=== PATIENT | male | born 1985 | race Caucasian/White ===

== ENCOUNTER 2025-01-02 09:05 | Outpatient (REF) | payer MEDICAID, SELFPAY ==
[2025-01-02 14:39] LABS: MANUAL DIFF FLAG NO
[2025-01-02 14:54] LABS: Hematocrit 44.2 % (42.0-52.0); Hemoglobin 15.6 g/dl (14.0-18.0); Imm Gran Abs Auto 0.06 X10*3/uL (0.00-0.03); Imm Gran Pct Auto 0.6 % (0.0-0.4); Lymphocytes Absolute Auto 1.7 X10*3/uL (1.2-4.9); Mean Corpuscular HGB Conc 35.3 g/dl (31.0-36.0); Mean Corpuscular Hemoglobin 29.8 pg (27.0-33.0); Mean Corpuscular Volume 84.4 fL (80.0-98.0); NRBC Abs Auto 0.000 X10*3/uL (0.0-0.012); NRBC Pct Auto 0.0 /100WBC (0.0-0.2); Platelet Count 310 X10*3/uL (160-400); Red Blood Count 5.24 X10*6/uL (4.60-5.80); White Blood Count 9.9 X10*3/uL (4.8-10.8)
[2025-01-02 15:12] LABS: Alanine Aminotransferase 27 U/L (0-40); Albumin Level 4.5 g/dL (3.5-5.0); Alkaline Phosphatase 121 U/L (39-117); Anion Gap 11 (12-20); Aspartate Amino Transferase 27 U/L (5-37); Blood Urea Nitrogen 14 mg/dL (9-16); Calcium 9.5 mg/dL (8.4-10.2); Carbon Dioxide 31 mmol/L (22-29); Chloride 97 mmol/L (96-108); Cholesterol 211 mg/dL (<200); Estimated Glomerular Filt Rate > 60; HDL Cholesterol 41 mg/dL (>40); Potassium 4.4 mmol/L (3.3-5.1); Sodium 135 mmol/L (135-145); Total Protein 7.0 g/dL (6.5-8.0); Triglycerides 110 mg/dL (<150)
[2025-01-03 13:10] LABS: HIV Num 1 0.06 S/CO (0.00-0.99); ~HepC Num1 0.12 S/CO (0.00-0.79); ~Hepatitis C Antibody Nonreactive (Nonreactive)
== END 2025-01-02 09:06 | disposition home or self-care (01) ==
LOC: HO.CHCLDS 09:05
DX: Z76.89 Persons encountering health services in other specified circumstances (principal); Z11.4 Encounter for screening for human immunodeficiency virus [HIV]; Z11.59 Encounter for screening for other viral diseases
CPT/HCPCS: 36415; 80053; 80061; 82043; 82570; 83036; 84443; 85025; 86803; 87389

== ENCOUNTER 2025-01-05 13:56 | Outpatient (REF) | payer MEDICAID, SELFPAY ==
--- OUTSIDE RECORDS SUMMARY | 2025-01-05 13:30 | XMS_ITS | Encounter Summary ---
Author Organization [employer] Address [address] [place] [address] 7 [place] [address] Care Team Providers Care Content Analyst Name Role Phone Mellisa Hernandez CNP Primary Care Provider [phone] Reason for Referral * Imaging (Routine) - Authorized Specialty Diagnoses / Procedures Referred By Yung branham Referred To Contact Radiology Diagnoses Transaminitis Procedures US Abdomen Complete Mellisa Hernandez CNP [address] [place] [address] Phone: tel: fax: [address] Phone: tel: fax: Referral ID Status Reason Start Date Expiration Date V isits Requested Visits Authorized [id number] Authorized 01/05/2025 01/05/2026 1 1 Reason for Visit * Reason Comments Follow-up Mental health Encounter Details Date Type Department Care Team (Latest Contact Info) Description 01/05/2025 1:30 PM EDT Office Visit [facility] [address] [place], [place] [id number] Mellisa Hernandez CNP [address] [place], [place] [id number] Hyperlipidemia, unspecified hyperlipidemia type (Primary Dx); Anxiety and depression; Transaminitis; Type 1 diabetes mellitus with other specified complication (HCC); Infection of toenail Social History Tobacco Use Types Packs/Day Years Used Date Smoking Tobacco: Never Passive Smoke Exposure: Never Smokeless Tobacco: Never Alcohol Use Standard Drinks/Week Comments Not Asked 0 (1 standard drink = 0.6 oz pur e alcohol) rare Depression Answer Date Recorded Patient Health Questionnaire-9 Score 22 11/23/2024 Patient Health Questionnaire-9 Score 22 11/23/2024 Last PHQ-9: Questionnaire Data Not on file 0 11/23/2024 Housing Stability Answer Date Recorded What is your housing situation today? I have sunday carroll 11/23/[address] you li ve. Do you have problems with any of the following? None of the above 11/23/2024 Food Insecurity Answer Date Recorded Within the past 12 months, y ou worried that your food would run out before you got money to buy more: Never True 11/23/2024 Within the past 12 months,th e food you bought just didn't last and you didn't have enough money to get more: Never True 12/2024 Transportation Answer Date Recorded In the past 12 months, has l ack of transportation kept you from medical appts, meetings, work or from getting things needed for daily living? Yes, it has kept me from non-medical meetings, work, or getting things that I need 11/23/2024 Utilities Answer Date Recorded In the past 12 months, has t he electric, gas, oil or water company threatened to shut off services in your home? No 11/23/2024 Depression Answer Date Recorded Patient Health Questionnaire-2 Score 6 11/23/2024 Internet Access Answer Date Recorded Internet Access Q1 No 11/23/2024 Internet Access Q2 I cannot afford it 11/23/2024 Sex and Gender Information Value Date Recorded Sex Assigned at Male 01/13/2022 10:20 AM EDT Legal Sex Male 10:20 AM EDT Gender Identity Choose not to disclose 10:20 AM EDT Sexual Orientation Choose not to disclose 2021 10:20 AM EDT documented as of this encounter Last Filed Vital Signs Vital Sign Reading Time Taken Comments Blood Pressure 134/88 01/05/2025 1:37 PM EDT Pulse 88 01/05/2025 1:37 PM EDT Temperature 36.7 C (98 F) 01/05/2025 1:37 PM EDT Respiratory Rate 12 01/05/2025 1:37 PM EDT Oxygen Saturation 96% 01/05/2025 1:37 PM EDT Inhaled Oxygen Concentration - - Weight 84.4 kg (186 lb) 01/05/2025 1:37 PM EDT Height 177.8 cm (5' 10 ) 01/05/2025 1:37 PM EDT Body Mass Index 26.69 01/05/2025 1:37 PM EDT documented in this encounter Progress Notes * Mellisa Hernandez, CLEAN UP SUPERVISOR - 01/05/2025 1:30 PM EDT Subjective Patient ID: Israel Lundy is a 39 y.o. adult who presents for f/u. HPI Interim History -Last PCP visit 11/23/2024 - we addressed the following: - Reports anxiety as main concern, depression present but manageable, currently experiencing panic attacks requiring withdrawal from situations. On waitlist for grief support through [employer] recently lost his partner, unable to access online support due to cost. No suicidal ideation, states responsibility prevents self-harm. We started sertraline and prn hydroxyzine. Pt was referred to for psychotherapy and grief support. Today - Ongoing Toe infection with oozing, worsened over the past week - Completed previous oral antibiotic course (doxy) for toe infection - Denies fever and chills or any systemic signs of infection - Anxiety symptoms, taking sertraline and hydroxyzine - Sertraline helps with sleep, no drowsiness, started with half pill for 10 days, now taking full pill - Hydroxyzine taken at night only, not during the day - Reports difficulty assessing improvement in anxiety symptoms - Sleep improved, now getting about 5 hours per night, previously only 2 hours - No side effects from anxiety medications - Reports he established care with , satisfied with provider has had 3 visits thus far - Reports ongoing hyperglycemia, 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, next f/u in February - Hemoglobin A1c recently decreased, surprised due to frequent high readings -reports he is going to start seeing linoleum tile floor layer Recent labs Lab Results Component Value Date WBC 9.9 01/02/2025 HGB 15.6 01/02/2025 HCT 44.2 01/02/2025 MCV 84.4 01/02/2025 PLT 310 01/02/2025 Lab Results Component Value Date GLUCOSE 281 (H) 01/02/2025 NA 135 01/02/2025 K 4.4 01/02/2025 CO2 31 (H) 01/02/2025 CL 97 01/02/2025 BUN 14 01/02/2025 CREATININE 0.78 01/02/2025 Lab Results Component Value Date CHOL 211 (H) 01/02/2025 Lab Results Component Value Date HDL 41 01/02/2025 Lab Results Component Value Date TRIG 110 01/02/2025 Lab Results Component Value Date HGBA1C 7.3 (H) 01/02/2025 Review of Systems Objective Vitals: 01/05/25 1337 BP: 134/88 Pulse: 88 Resp: 12 Temp: 98 ??F (36.7 ??C) SpO2: 96% Physical Exam Constitutional: Appearance: Normal appearance. Israel is normal weight. Cardiovascular: Rate and Rhythm: Normal rate and regular rhythm. Pulses: Normal pulses. Heart sounds: Normal heart sounds. No murmur heard. No friction rub. No gallop. Pulmonary: Effort: Pulmonary effort is normal. No respiratory distress. Breath sounds: Normal breath sounds. No wheezing or rales. Feet: Left foot: Skin integrity: Erythema and warmth present. Comments: +some bleeding noted on R large toe no purulent discharge Neurological: General: No focal deficit present. Mental Status: Israel is alert and oriented to person, place, and time. Psychiatric: Mood and Affect: Mood normal. Behavior: Behavior normal. Thought Content: Thought content normal. Judgment: Judgment normal. Problem List Items Addressed This Visit Type 1 diabetes mellitus (HCC) Relevant Medications Insulin Lispro 100 UNIT/ML solution atorvastatin (Lipitor) 10 MG tablet Multiple Vitamin (multivitamin) tablet Other Relevant Orders POCT glucose manually resulted (Completed) Lab Results Component Value Date HGBA1C 7.3 (H) 01/02/2025 Pt to continue endocrinology f/u Pt to f/u with linoleum tile floor layer Pt referred to podiatry at [facility] Pt referred for eye exam at [facility] vision center at [facility] Today we added statin therapy Continue with lifestyle modifications Other Visit Diagnoses Hyperlipidemia, unspecified hyperlipidemia type - Primary Relevant Medications Insulin Lispro 100 UNIT/ML solution atorvastatin (Lipitor) 10 MG tablet Multiple Vitamin (multivitamin) tablet Other Relevant Orders Lipid Panel, Standard LDL levels <190, pt has high asvd risk >20% Due to co morbidities including T1 diabetes and elevated blood pressure will initiate moderate intensity statin per ADA guidelines. Advised lifestyle modifications included low fat diet and daily exercise. Anxiety and depression Relevant Medications amitriptyline (Elavil) 25 MG tablet hydrOXYzine HCl (Atarax) 25 MG tablet No safety concerns today Pt sleep is improving on meds Pt will continue on current medications and OP psychotherapy/grief support Transaminitis Relevant Medications amoxicillin-clavulanate (Augmentin) 875-125 MG tablet Multiple Vitamin (multivitamin) tablet Other Relevant Orders Iron And Total Iron Binding Capacity US Abdomen Complete Plan to do transaminitis workup Will f/u with US and blood work once complete Infection of toenail Relevant Medications amoxicillin-clavulanate (Augmentin) 875-125 MG tablet Podiatry referral authorized, appointment pending Will trial 10d course of augmentin Pt to continue foot care, keep area clean and dry F/u prn for new or worsening conditions documented in this encounter Plan of Treatment Scheduled Orders Name Type Priority Associated Diagnoses Orde r Schedule Iron And Total Iron Binding Capacity Lab Routine Transaminitis Expected: 01/05/2025, Expires: 01/05/2026 US Abdomen Complete Imaging Routine Transaminitis Expected: 01/05/2025, Expires: 01/05/2026 Lipid Panel, Standard Lab Routine Hyperlipidemia, unspecified hyperlipidemia type Expected: 01/05/2025 (Approximate), Expires: 02/13/2025 documented as of this encounter Procedures Procedure Name Priority Date/Time Associated Diagnosis Comments POCT GLUCOSE Routine 01/05/2025 2:01 PM EDT Type 1 diabetes mellitus with other specified complication (HCC) documented in this encounter Results * POCT glucose manually resulted (01/05/2025 2:01 PM EDT) Glucose Blood, POC 95 60 - 200 mg/dL QC Media Lot # Comment:[id number] Lot# Expiration Date Comment:04/23/2025 Blood Capillary blood specimen / Unknown 01/05/2025 2:01 PM EDT us Mellisa Hernandez CNP POINT OF CARE TEST ENTER/ EDIT ORDERABLES Final Result documented in this encounter Visit Diagnoses Diagnosis Hyperlipidemia, unspecified hyperlipidemia type- Primary Anxiety and depression Transaminitis Nonspecific elevation of levels of transaminase or lactic acid dehydrogenase (LDH) Type 1 diabetes mellitus with other specified complication (HCC) Infection of toenail documented in this encounter Additional Health Concerns Assessment Noted Time PHQ-9 Depression Total Score: 22 025 3:11 PM EDT documented as of this encounter Care Teams Content Analyst Relationship Specialty Start Date End Date Mellisa Hernandez CNP PCP - General Family Medicine 11/23/24 documented as of this encounter
--- OUTSIDE RECORDS SUMMARY | 2025-01-05 17:49 | XMS_ITS | Encounter Summary ---
Author Organization [employer] Address [address] [facility] [address] [place] [address] Care Team Providers Care Occ Ther Name Role Phone Mellisa Hernandez LUIGI Primary Care Provider [phone] Encounter Details Date Type Department Care Team (Latest Contact Info) Description 01/05/2025 Travel Social History Tobacco Use Types Packs/Day Years [...] AM EDT documented as of this encounter Plan of Treatment Not on file documented as of this encounter Visit Diagnoses Not on filedocumented in this encounter Additional Health Concerns Assessment Noted Time PHQ-9 Depression Total Score: 22 025 3:11 PM EDT documented as of this encounter Care Teams Occ Ther Relationship Specialty Start Date End Date Mellisa Hernandez CNP PCP - General Family Medicine 11/23/24 documented as of this encounter
--- OUTSIDE RECORDS SUMMARY | 2025-01-05 17:49 | XMS_ITS | Encounter Summary ---
Author Organization [employer] Address [address] [facility] [address] [place] [address] Care Team Providers Care Field Service Manager Name Role Phone Mellisa Hernandez CNP Primary Care Provider [phone] Reason for Visit * Reason Comments Med Refill Encounter Details Date Type Department Care Team ([facility] st Contact Info) Description 12/24/2024 Refill [facility] PEDS [address] [place] [address] Mellisa Hernandez CNP [address] [place] [address] Anxiety and depression Social History Tobacco Use Types Packs/Day Years [...] AM EDT documented as of this encounter Miscellaneous Notes * Telephone Encounter - Trudy Charles LPN - 12/26/2024 1:20 PM EDT Last seen 11/23/24. documented in this encounter Plan of Treatment Not on file documented as of this encounter Visit Diagnoses Diagnosis Anxiety and depression documented in this encounter Additional Health Concerns Assessment Noted Time PHQ-9 Depression Total Score: 22 025 3:11 PM EDT documented as of this encounter Care Teams Field Service Manager Relationship Specialty Start Date End Date Mellisa Hernandez CNP PCP - General Family Medicine 11/23/24 documented as of this encounter
--- OUTSIDE RECORDS SUMMARY | 2025-01-05 17:49 | XMS_ITS | Clinical Summary ---
Author Organization [address] [place] [address] Address [address] [place] [address] Phone Care Team Providers Care Nanny/Household Manager Name Role Phone Unavailable Primary Care Provider Unavailabl e Social History Tobacco Use Types Packs/Day Years Used Date Smoking Tobacco: Never Assessed Sex and Gender Information Value Date Recorded Sex Assigned at Not on file Legal Sex Male 11:32 AM EDT Gender Identity Not on file Sexual Orientation Not on file Plan of Treatment Upcoming Encounters Date Type Department Care Team ([facility] Contact Info) Description 03/02/2025 2:45 PM EST Office Visit Orthopedic Surgery [place] [address] [address] Christophe Nicole, DPM [address] [address] Health Maintenance Due Date Last Done Comments Diabetes: Annual GFR (Glomer ular Filtration Rate) 1985 Diabetes: Annual Foot Exam 05/31/1995 Diabetes: Annual Retina Eye Exam 05/31/1995 DTaP,Tdap,and Td Vaccines (1 - Tdap) 2004 Hepatitis B Vaccines (1 of 3 - 19+ 3-dose series) 2004 Pneumococcal Vaccine: Pediat rics (0 to 5 Years) and At-Risk Patients (6 to 49 Years) (1 of 2 - PCV) 2004 HPV Vaccines (1 - 3-dose SCD M series) 2012 Depression Screening 03/16/2024 COVID-19 Vaccine ( - 2023-2 5 season) 2024 Influenza Vaccine (#1) 2024 Cholesterol Screening (Lipid Panel) 11/29/2024 Diabetes: Annual Urine Albumin-Creatinine Ratio (uACR) 11/29/2024 Diabetes: Blood Sugar Contro l Test (HGBA1C) 11/29/2024 HIV Screening 11/29/2024 Hepatitis C Screening 11/29/2024 Social Influencers of Health Screening 11/29/2024 RSV Immunization Adult Patie nts (1 - 1-dose 75+ series) 2060 HIB Vaccines Aged Out No longer eligi ble based on patient's age to complete this topic Hepatitis A Vaccines Aged Out No long er eligible based on patient's age to complete this topic IPV Vaccines Aged Out No longer eligi ble based on patient's age to complete this topic MMR Vaccines Aged Out No longer eligi ble based on patient's age to complete this topic Meningococcal ACWY Vaccine Aged Out N o longer eligible based on patient's age to complete this topic Meningococcal B Vaccine Aged Out No l onger eligible based on patient's age to complete this topic RSV Immunization Patients Un reid 20 months Aged Out No longer eligible b ased on patient's age to complete this topic Varicella Vaccines Aged Out No longer eligible based on patient's age to complete this topic Insurance [place]ICA[place] - [place]
--- OUTSIDE RECORDS SUMMARY | 2025-01-05 17:49 | XMS_ITS | Clinical Summary ---
Author Organization [employer] Address [address] [place] [address] 7[address] [place] [address] Care Team Providers Care Broadcast Operations Technician Name Role Phone Mellisa Hernandez AVIATION MAINTENANCE TECHNICIAN Primary Care Provider [phone] [phone] Allergies No known active allergies Medications * This document contains information received from the source organization and may not represent a complete record from that organization. loratadine (Claritin) 10 MG tablet Take 1 tablet by mouth Once per day. 025 Active insulin syringe-needle U-100 31G X 5/16 0.5 mL misc See Instructions, # 100 each, Refills 11, Tot. Refills 11, Maintenance, To use up to 4 x daily for back up of insulin delivery as directed in case of pump malfunction or pump supply issue. E10.9, 01/08/23 15:52:00 EDT, Supply, 180, cm, 12/15/22 0:51:0... 023 Active albuterol 108 (90 Base) MCG/ACT inhalerIndication s:Mild intermittent asthma without complication Inhale 2 puffs every 6 (six) hours if needed for wheezing. 18 g 3 025 2025 Active pregabalin (Lyrica) 100 MG capsuleIndication s:Neuropathy Take 1 capsule (100 mg) by mouth 2 times daily. 60 capsule 3 025 2025 Active sertraline (Zoloft) 50 MG tabletIndications :Anxiety and depression Take 1 tablet (50 mg) by mouth Once per day. 30 tablet 2 Active amitriptyline (Elavil) 25 MG tablet Take 25 mg by mouth at bedtime. 025 Active FREESTYLE LITE test strip USE TO TEST BLOOD SUGAR FOUR TIMES DAILY Active Insulin Lispro 100 UNIT/ML solution MAX DAILY DOSE 85 UNITS VIA INSULIN PUMP Active FreeStyle lancets USE TO TEST BLOOD SUGAR FOUR TIMES DAILY Active atorvastatin (Lipitor) 10 MG tabletIndications :Hyperlipidemia, unspecified hyperlipidemia type Take 1 tablet (10 mg) by mouth Once per day. 30 tablet 11 2025 Active amoxicillin-clavu lanate (Augmentin) 875-125 MG tabletIndications :Infection of toenail Take 1 tablet by mouth 2 times daily for 10 days. 20 tablet 2024 Active hydrOXYzine HCl (Atarax) 25 MG tabletIndications :Anxiety and depression Take 1 tablet (25 mg) by mouth if needed in the morning, at noon, and at bedtime for anxiety. 90 tablet 2024 Active Multiple Vitamin (multivitamin) tabletIndications :Hyperlipidemia, unspecified hyperlipidemia type,Type 1 diabetes mellitus with other specified complication (HCC) Take 1 tablet by mouth Once per day. 30 tablet 11 2025 Active Insulin Aspart 100 UNIT/ML solution SEE ATTACHED 2024 Discontinued polyethylene glycol, PEG, 3350 (MiraLax) 17 GM/SCOOP powderIndications :Constipation, unspecified constipation type Take 17 g by mouth Once per day for 14 days. 238 g 2024 sertraline (Zoloft) 50 MG tabletIndications :Anxiety and depression Take 1 tablet (50 mg) by mouth Once per day. Take 1/2 tablet (25mg) for 1 week. If tolerated, may increase to 1 tablet (50mg) daily. 30 tablet 2024 Discontinued(R eorder (will not trigger notification to Pharmacy)) hydrOXYzine HCl (Atarax) 25 MG tabletIndications :Anxiety and depression Take 1 tablet (25 mg) by mouth if needed in the morning, at noon, and at bedtime for anxiety. 90 tablet 025 2024 Discontinued(R eorder (will not trigger notification to Pharmacy)) Active Problems Problem Noted Date Diagnosed Date Severe depression (CMS/HCC) 12/08/2024 Anxiety 12/08/2024 Feeling grief 12/08/2024 Type 1 diabetes mellitus 11/23/2024 Assessment & Plan (11/23/2024 4:00 PM EDT): Lab Results Component Value Date HGBA1C 7.5 (A) 11/23/2024 Continue lifestyle modifications Continue f/u with endocrinology Orders: POCT A1c POCT glucose manually resulted Referral to Podiatry; Future Encounters * This document contains information received from the source organization and may not represent a complete record from that organization. Date Type Department Care Team Description 01/05/2025 1:30 PM EDT Office Visit [facility] [address] [place] [address] Mellisa Hernandez CNP Hyperlipidemia, unspecified hyperlipidemia type (Primary Dx); Anxiety and depression; Transaminitis; Type 1 diabetes mellitus with other specified complication ([facility]); Infection of toenail 01/05/2025 Travel 01/02/2025 Travel 12/30/2024 Telephone [facility] [address] [place] [address] Mellisa Hernandez CNP chart prep 12/24/2024 Refill [facility] [address] [place] [address] Mellisa Hernandez CNP Anxiety and depression 12/18/2024 Refill [facility] [address] [place] [address] Mellisa Hernandez CNP Anxiety and depression 12/08/2024 Travel 11/23/2024 2:00 PM EDT Office Visit [facility] [address] [place] [address] Mellisa Hernandez CNP Encounter to establish care (Primary Dx); Type 1 diabetes mellitus with other specified complication (CMS/HCC); Nausea; Constipation, unspecified constipation type; Mild intermittent asthma without complication; Toe infection; Neuropathy; Anxiety and depression; Elevated blood pressure reading without diagnosis of hypertension 11/23/2024 Travel 11/16/2024 Patient Outreach [facility] [address] [place] [address] Anastacio Prater MD Pre-visit Planning (Pre visit planning LVM ) 11/15/2024 Telephone [facility] [address] [place] [address] Daniel CatherineHARINDER chart prep 10/21/2024 Telephone [facility] [address] [place] [address] Anastacio Prater MD New Patient appt. 10/10/2024 Telephone [facility] [address] [place] [address] Anastacio Prater MD Appointment Request from Last 3 Months Immunizations Immunization Administration Dates Next Due Pneumococcal Conjugate PCV 20 03/10/2024 Social History Tobacco Use Types Packs/Day Years Used Date Smoking Tobacco: Never Passive Smoke Exposure: Never Smokeless Tobacco: Never Tobacco Cessation:Counseling Given: Not Answered Alcohol Use Standard Drinks/Week Comments Not Asked [...] not to disclose 2021 10:20 AM EDT Last Filed Vital Signs Vital Sign Reading [...] Mass Index 26.69 01/05/2025 1:37 PM EDT Plan of Treatment Health Maintenance Due Date Last Done Comments Eye Exam 05/31/1995 Family Planning (PISQ) 2000 HPV Vaccines (1 - 3-dose series) 2000 DTaP/Tdap/Td Vaccines (1 - Tdap) 2004 Hepatitis B Vaccines (1 of 3 - 19+ 3-dose series) 2004 COVID-19 Vaccine ( - 2024-2 6 season) 2024 09/18/2020, 08/28/2020 Influenza Vaccine (#1) 2024 Diabetes: Hemoglobin A1C 04/04/2025 025, 11/23/2024 Depression Monitoring 05/23/2025 11/23/2024 , 11/23/2024 Alcohol/Substance Use Screening 11/23/2025 11/23/2024 SDOH Screening 11/23/2025 11/23/2024 Tobacco Screening 11/23/2025 11/23/2024 Diabetes: Urine Protein Screening 01/02/2026 01/02/2025 Disability Screening 01/02/2026 01/02/2025 Lipid Panel 01/02/2026 01/02/2025 Diabetes: Foot Exam 01/05/2026 01/05/2025, 01/05/2025 Zoster Vaccines (1 of 2) 05/31/2035 RSV Patients and Patients Aged 60 years or older (1 - 1-dose 75+ series) 2060 Pneumococcal Vaccine: Pediatrics (0 to 5 Years) and At-Risk Patients (6 to 49) Years Completed 03/10/2024 HIV Screening Completed 01/02/2025 Hepatitis C Screening Completed 01/02/2025 HIB Vaccines Aged Out No longer eligi [...] patient's age to complete this topic Meningococcal Vaccine Aged Out No stuart yareli eligible based on patient's age to complete this topic RSV under 20 months Aged Out No longe r eligible based on patient's age to complete this topic Rotavirus Vaccines Aged Out No longer eligible based on patient's age to complete this topic Procedures Procedure Name Priority Date/Time Associated Diagnosis Comments POCT GLUCOSE Routine 01/05/2025 2:01 PM EDT Type 1 diabetes mellitus with other specified complication (HCC) ALBUMIN, RANDOM URINE W/CREATININE Routine 01/02/2025 9:15 AM EDT Encounter to establish care TSH W/REFLEX TO FT4 Routine 01/02/2025 9 :09 AM EDT Encounter to establish care CBC WITH AUTO DIFFERENTIAL Routine 01/02/2025 9:09 AM EDT Encounter to establish care COMPREHENSIVE METABOLIC PANEL Routine 01/02/2025 9:09 AM EDT Encounter to establish care HEPATITIS C AB W/REFL TO HCV RNA, QN, PCR Routine 01/02/2025 9:09 AM EDT Encounter to establish care HIV 1/2 ANTIGEN/ANTIBODY, FOURTH GENERATION W/RFL Routine 01/02/2025 9:09 AM EDT Encounter to establish care LIPID PANEL, STANDARD Routine 01/02/2025 9:09 AM EDT Encounter to establish care HEMOGLOBIN A1C Routine 01/02/2025 9:09 AM EDT Encounter to establish care POCT GLUCOSE Routine 11/23/2024 3:02 PM EDT Encounter to establish care Type 1 diabetes mellitus with other specified complication (CMS/HCC) POCT GLYCATED HEMOGLOBIN, TOTAL Routine 11/23/2024 3:01 PM EDT Encounter to establish care Type 1 diabetes mellitus with other specified complication (CMS/HCC) from Last 3 Months Results * POCT glucose manually resulted (01/05/2025 2:01 PM EDT) Only the most recent of2 resultswithin the time period is included. Glucose Blood, POC 95 60 - 200 mg/dL QC Media Lot # Comment:[id number] Lot# Expiration Date Comment:04/23/2025 Blood Capillary blood specimen / Unknown 01/05/2025 2:01 PM EDT [facility] POINT OF CARE TEST ENTER/ EDIT ORDERABLES Final Result * Albumin, Random Urine W/Creatinine (01/02/2025 9:15 AM EDT) Creatinine, Urine 23.24 mg/dL [facility] Microalbumin Urine <5.0 mg/L [facility] Microalbum Creatinine Ratio Ur TNP <30 ug/mg cr [facility] Comment:Unable to calculate albumin/creatinine ratio due to lowmicroalbumin or creatinine result. Urine (Urine, Random) 01/02/2025 9:15 AM EDT 01/02/2025 2:23 PM EDT [facility] AVIATION MAINTENANCE TECHNICIAN LAB URINE ORDERABLES Silvia l Result Performing Organization Address City/[facility]/ZIP Co de Phone Number [facility] [address] [place] [phone] * TSH W/Reflex to FT4 (01/02/2025 9:09 AM EDT) TSH reflex Free T4 3.05 0.32 - 4.0 uIU/mL [facility] Blood Venous blood specimen / Unknown 01/02/2025 9:09 AM EDT 01/02/2025 2:46 PM EDT [facility] AVIATION MAINTENANCE TECHNICIAN LAB BLOOD ORDERABLES Silvia l Result Performing Organization Address [facility] Co de Phone Number [facility] [address] [place] [phone] * (ABNORMAL) CBC auto differential (01/02/2025 9:09 AM EDT) White Blood Count 9.9 4.8 - 10.8 X10*3/uL [facility] Red Blood Count 5.24 4.60 - 5.80 X10*6/uL [facility] Hemoglobin 15.6 14.0 - 18.0 g/dl [facility] Hematocrit 44.2 42.0 - 52.0 % [facility] Mean Corpuscular Volume 84.4 80.0 - 98.0 fL [facility] Mean Corpuscular Hemoglobin 29.8 27.0 - 33.0 pg [facility] Mean Corpuscular HGB Conc 35.3 31.0 - 36.0 g/dl [facility] Red Cell Distribution Width 12.4 11.0 - 16.0 % [facility] Platelet Count 310 160 - 400 X10*3/uL [facility] Mean Platelet Volume 10.3 9.4 - 12.4 fL [facility] Neutrophils Percent Auto 71.1 45 - 73 % [facility] Imm Gran Pct Auto 0.6(H) 0.0 - 0.4 % [facility] Lymphocytes Percent Auto 17.4(L) 20 - 40 % [facility] Monocytes Percent Auto 6.4 2 - 11 % [facility] Eosinophils Percent Auto 3.7 0 - 4 % [facility] Basophils Percent Auto 0.8 0 - 2 % [facility] NRBC Pct Auto 0.0 0.0 - 0.2 /100WBC [facility] Neutrophils Absolute Auto 7.1 2.0 - 8.3 x10*3/uL [facility] Imm Gran Abs Auto 0.06(H) 0.00 - 0.03 X10*3/uL [facility] Lymphocytes Absolute Auto 1.7 1.2 - 4.9 X10*3/uL [facility] Monocytes Absolute Auto 0.6 0.1 - 1.2 X10*3/uL [facility] Eosinophils Absolute Auto 0.4 0.0 - 0.4 X10*3/uL [facility] Basophils Absolute Auto 0.1 0.0 - 0.2 X10*3/uL [facility] NRBC Abs Auto 0.000 0.0 - 0.012 X10*3/uL [facility] Blood Venous blood specimen / Unknown 01/02/2025 9:09 AM EDT 01/02/2025 2:35 PM EDT [facility] LAB BLOOD ORDERABLES Silvia l Result [facility] [address], [place] [phone] * Hepatitis C Antibody with Reflex to HCV, RNA, Quantitative, Real-Time PCR (01/02/2025 9:09 AM EDT) Hepatitis C Antibody Nonreactive Nonreactive [facility] Comment:Antibodies to HCV no t detected; does not exclude early acuteHCV infection. Blood Venous blood specimen / Unknown 01/02/2025 9:09 AM EDT 01/02/2025 2:35 PM EDT [facility] LAB BLOOD ORDERABLES Silvia l Result Performing Organization Address [facility] Co de Phone Number [facility] [address] [place] [address] [phone] * HIV-1/2 Antigen and Antibodies, Fourth Generation, with Reflexes (01/02/2025 9:09 AM EDT) HIV AB/AG Nonreactive Nonreactive [facility] Comment:HIV-1 p24 Ag and/or HIV-1/HIV-2 Ab not detected.A test result that is nonreactive does not exclude thepossibility of exposure to or infection with HIV-1 and/orHIV-2. Nonreactive results in this assay for individualswith prior exposure to HIV-1 and/or HIV-2 may be due toantigen and antibody levels that are below the limit ofdetection of this assay.The [email or web address] HIV Ag/Ab Combo assay result andsupplemental assay results should be interpreted inconjunction with the patient's clinical presentation,history and other laboratory results. If the results areinconsistent with clinical evidence, additional testing issuggested to confirm the result. Blood Venous blood specimen / Unknown 01/02/2025 9:09 AM EDT 01/02/2025 2:35 PM EDT [facility] LAB BLOOD ORDERABLES Silvia l Result Performing Organization Address City/[facility]/ZIP Co de Phone Number [facility] [address] [place] [phone] * (ABNORMAL) Hemoglobin A1c (01/02/2025 9:09 AM EDT) Hemoglobin A1c 7.3(H) <6.0 % [facility] Comment:Hemoglobin A1C Refer ence Range Adults: 4.8 - 6.0 % Non diabetic: < 6.0 % Goal: < 7.0 %Additional Action Suggested: > 8.0 %Note: Hemoglobin A1c results are invalid for patients with abnormal amounts of HbF. Blood transfusions may impact the HbA1c concentration in the patient sample. Estimated Average Glucose 163 mg/dL [facility] Comment:eAG = Estimated ave rage glucose which is %A1C expressed asaverage glucose, using the formula of the A8H-AjynzbpTpgzchi Glucose study (ADAG), Diabetes Care, Vol.31,#8,Oct. 2007 Blood Venous blood specimen / Unknown 01/02/2025 9:09 AM EDT 01/02/2025 2:35 PM EDT Mellisa Hernandez [facility] LAB BLOOD ORDERABLES Silvia alvarez Result [facility] [address] [place] [phone] * (ABNORMAL) Lipid Panel, Standard (01/02/2025 9:09 AM EDT) Triglycerides 110 <150 mg/dL [facility] Comment:Desirable Triglyceri de: less than 150 mg/dLBorderline High Triglyceride 150-199 mg/dLHigh Triglyceride: 200-499 mg/dLVery High Triglyceride: greater than or equal to 5OO mg/dL Cholesterol 211(H) <200 mg/dL [facility] Comment:Desirable Cholestero l: less than 200 mg/dLBorderline High Cholesterol: 200-239 mg/dLHigh Cholesterol: greater than 239 mg/dL LDL Cholesterol Calculated 148(H) <100 mg/dL [facility] Comment:Desirable LDL: less than 100 mg/dLNear Optimal/Above Optimal LDL: 110- 129 mg/dLBorderline High LDL: 130-159 mg/dLHigh LDL: 160-189 mg/dLVery High LDL: greater than or equal to 190 mg/dL HDL Cholesterol 41 >40 mg/dL [facility] Comment:Desirable HDL: great er than 40 mg/dL Note: This HDL assay may give artificially low results in patients with liver disease. Blood Venous blood specimen / Unknown 01/02/2025 9:09 AM EDT 01/02/2025 2:46 PM EDT [facility] BLOOD ORDERABLES Silvia l Result [facility] [address] [place] [phone] * (ABNORMAL) Comprehensive Metabolic Panel (01/02/2025 9:09 AM EDT) Sodium 135 135 - 145 mmol/L [facility] Potassium 4.4 3.3 - 5.1 mmol/L [facility] Chloride 97 96 - 108 mmol/L [facility] Carbon Dioxide 31(H) 22 - 29 mmol/L [facility] Anion Gap 11(L) 12 - 20 [facility] Urea Nitrogen (BUN) 14 9 - 16 mg/dL [facility] Creatinine, Serum 0.78 0.5 - 1.4 mg/dL [facility] Estimated Glomerular Filt Rate >60 [facility] Comment:Chronic Kidney Disea se: Estimated GFR < 60 mL/min/[id number] Kidney Disease: Estimated GFR < 15 mL/min/1.73m2 Glucose 281(H) 60 - 115 mg/dL [facility] Calcium 9.5 8.4 - 10.2 mg/dL [facility] Bilirubin, Total 0.8 0.0 - 1.0 mg/dL [facility] Aspartate Amino Transferase 27 5 - 37 U/L [facility] Alanine Aminotransferase 27 0 - 40 U/L [facility] Total Protein 7.0 6.5 - 8.0 g/dL [facility] Albumin Level 4.5 3.5 - 5.0 g/dL [facility] Alkaline Phosphatase 121(H) 39 - 117 U/L [facility] Blood Venous blood specimen / Unknown 01/02/2025 9:09 AM EDT 01/02/2025 2:46 PM EDT [facility] LAB BLOOD ORDERABLES Silvia l Result [facility] [address] [place] [phone] * (ABNORMAL) POCT A1c (11/23/2024 3:01 PM EDT) Hemoglobin A1C 7.5(A) 4.0 - 5.7 % QC Media Lot # Comment:[id number] Lot# Expiration Date Comment:06/20/2026 Blood 11/23/2024 3:01 PM EDT Mellisa Hernandez CNP POINT OF CARE TEST ENTER/ EDIT ORDERABLES Final Result from Last 3 Months Insurance [id number] Care Teams Broadcast Operations Technician Relationship Specialty Start Date End Date Mellisa Hernandez CNP PCP - General Family Medicine 11/23/24
--- OUTSIDE RECORDS SUMMARY | 2025-01-05 17:49 | XMS_ITS | Encounter Summary ---
Author Organization [employer] Address [address] [facility] [address] [place] [address] Care Team Providers Care Machine Assistant Name Role Phone Mellisa Hernandez LUIGI Primary Care Provider +1 [phone] Encounter Details Date Type Department Care Team (Latest Contact Info) Description 01/02/2025 Travel Social History Tobacco Use Types Packs/Day [...] documented as of this encounter Care Teams Machine Assistant Relationship Specialty Start Date End Date Mellisa Hernandez CNP PCP - General Family Medicine 11/23/24 documented as of this encounter
[2025-01-05 18:18] LABS: Iron 83 mcg/dL (45-160); Percent Iron Saturation 32 % (15-50); Total Iron Binding Capacity 263 mcg/dL (228-428); Unsaturated Iron Binding 180 ug/dL
== END 2025-01-05 13:57 | disposition home or self-care (01) ==
LOC: HO.CHCLDS 13:56
DX: R74.01 Elevation of levels of liver transaminase levels (principal)
CPT/HCPCS: 36415; 83540

== ENCOUNTER 2025-02-02 15:52 | Outpatient (REF) | payer MEDICAID, SELFPAY ==
--- NOTE | 2025-02-02 | PFT_ITS ---
Flows: FEV1: 83 % of predicted at 3.52 L FVC: 90 % of predicted at 4.74 L FEV1/FVC: 74 % Bronchodilator response: Present in small to medium airways only Volumes: Total lung capacity: 85 % of predicted at 6.10 L Residual volume: 96 % of predicted at 1.55 L Slow vital capacity: 82 % of predicted at 4.56 L Expiratory reserve volume: 39 % of predicted at 0.63 L Diffusion capacity: Mildly decreased, corrects to normal after adjustment for alveolar ventilation. Impression: No obstructive or restrictive ventilatory defect. Bronchodilator response is present in small to medium airways only. MTDD
[2025-02-02 16:32] VITALS: PULSE 79
--- OUTSIDE RECORDS SUMMARY | 2025-02-02 20:48 | XMS_ITS | Encounter Summary ---
Author Organization [employer] Address [address] [place] [address] Care Team Providers Care Stiff Leg Operator Name Role Phone David Andrezginger MEYERS Primary Care Provider [phone] [phone] Encounter Details Date Type Department Care Team (Late st Contact Info) Description 01/31/2025 Telephone [facility] [address] [place] [address] Mellisa Hernandez CNP [address] [place], [place] [phone] Social History Tobacco Use Types Packs/Day Years [...] documented as of this encounter Care Teams Stiff Leg Operator Relationship Specialty Start Date End Date Mellisa Hernandez CNP PCP - General Family Medicine 11/23/24 documented as of this encounter
--- OUTSIDE RECORDS SUMMARY | 2025-02-02 20:48 | XMS_ITS | Encounter Summary ---
Author Organization [employer] Address [address] [facility] [address] [place] [address] Care Team Providers Care Rough And Truing Machine Operator Name Role Phone Mellisa Hernandez CNP Primary Care Provider +1 [phone] Reason for Visit * Reason Comments Med Refill Encounter Details Date Type Department Care Team ([facility] st Contact Info) Description 12/24/2024 Refill [facility] [address] [place] [address] Mellisa Hernandez CNP [address] [place] [address] Anxiety and depression Social History Tobacco Use [...] documented as of this encounter Care Teams Rough And Truing Machine Operator Relationship Specialty Start Date End Date Mellisa Hernandez CNP PCP - General Family Medicine 11/23/24 documented as of this encounter
--- OUTSIDE RECORDS SUMMARY | 2025-02-02 20:48 | XMS_ITS | Encounter Summary ---
Author Organization [employer] Address [address] [facility] [address] [place] [address] Care Team Providers Care Certified Detention Deputy Name Role Phone Mellisa Hernandez CNP Primary Care Provider [phone] [phone] Reason for Visit * Reason Onset Date Comments Med Refill 01/31/2025 Encounter Details Date Type Department Care Team (Late st Contact Info) Description 01/31/2025 Refill [facility] [address] [place] [address] Mellisa Hernandez CNP [address] [place] [address] Anxiety and depression Social History Tobacco Use [...] Telephone Encounter - Trudy Charles LPN - 01/31/2025 12:32 PM EST Last seen 01/05/25. * Telephone Encounter - Valery Nichols - 01/31/2025 12:18 PM EST TC from pt requesting medication refill. Medications needing refill : loratadine (Claritin) 10 MG tablet ondansetron (Zofran) 4 MG tablet To be sent to:[id number] - [place] [address] [address] [facility] documented in this encounter Plan of Treatment Not on file documented as of this encounter Visit Diagnoses Diagnosis Anxiety and depression documented in this encounter Additional Health Concerns Assessment Noted Time PHQ-9 Depression Total Score: 22 025 3:11 PM EDT documented as of this encounter Care Teams Certified Detention Deputy Relationship Specialty Start Date End Date Mellisa Hernandez CNP PCP - General Family Medicine 11/23/24 documented as of this encounter
--- OUTSIDE RECORDS SUMMARY | 2025-02-02 20:48 | XMS_ITS | Encounter Summary ---
Author Organization [employer] Address [address] [facility] 7t [place] [address] Care Team Providers Care Casting Trucker Name Role Phone Mellisa Hernandez CNP Primary Care Provider [phone] [phone] Reason for Visit * Reason Onset Date Comments Medication Question 01/31/2025 Encounter Details Date Type Department Care Team ([facility] st Contact Info) Description 01/31/2025 Telephone [facility] [address] [place] [address] Mellisa Hernandez CNP [address] [place] [address] Medication Question Social History Tobacco Use Types Packs/Day Years [...] encounter Miscellaneous Notes * Telephone Encounter - Sofiya Carmichael RN - 02/01/2025 11:05 AM EST We can switch to a low intensity statin since he is currently on moderate intensity, we will switchto simvastatin 10mg and trial that for 2-4 weeks, if he is unable to tolerate and symptoms persist we will formally discontinue, thanks! I will send new script now. Called pt regarding above message from PCP, spoke to pt. Advised of message as above and pt is willing to trial the new less intense lipid medication and will picking crew supervisor and start. Advised lots of fluids, monitor for any side effects, and call back as needed. Pt understands and agrees with plan. * Telephone Encounter - Mellisa Hernandez CNP - 01/31/2025 4:09 PM EST We can switch to a low intensity statin since he is currently on moderate intensity, we will switchto simvastatin 10mg and trial that for 2-4 weeks, if he is unable to tolerate and symptoms persist we will formally discontinue, thanks! I will send new script now. * Telephone Encounter - Sofiya Carmichael RN - 01/31/2025 3:07 PM EST Called pt regarding message, spoke to pt. Pt reports that over about the 2 months he has been taking Atorvastatin 10 mg daily, had developed some fairly severe muscle aches. Pt states stopped the Lipitor about 1 week ago or so, and within about 24 hours the muscle aches were mostly gone and all gone now. Reviewed the lab results. Advised will task to PCP regarding if she would recommend another medication or go with dietary control and exercise. Pt understands and agrees with plan. Advised willcall back if any new recommendations. * Telephone Encounter - Valery Nichols - 01/31/2025 12:24 PM EST Tc from pt state no longer want to take medication do to side effects . atorvastatin (Lipitor) 10 MG tablet Please contact at [phone] documented in this encounter Plan of Treatment Not on file documented as of this encounter Visit Diagnoses Not on filedocumented in this encounter Additional Health Concerns Assessment Noted Time PHQ-9 Depression Total Score: 22 025 3:11 PM EDT documented as of this encounter Care Teams Casting Trucker Relationship Specialty Start Date End Date Mellisa Hernandez CNP PCP - General Family Medicine 11/23/24 documented as of this encounter
--- OUTSIDE RECORDS SUMMARY | 2025-02-02 20:48 | XMS_ITS | Encounter Summary ---
Author Organization [employer] Address [address] [facility] 7[address] [place] [address] Care Team Providers Care Masonry Contractor Name Role Phone Mellisa Hernandez CNP Primary Care Provider [phone] Reason for Visit * Reason Comments Med Refill Encounter Details Date Type Department Care Team ([facility] st Contact Info) Description 01/31/2025 Refill [facility] MED & PEDS [address] [place] [address] Mellisa Hernandez CNP [address] [place] [address] Anxiety and depression Social History Tobacco Use [...] documented as of this encounter Care Teams Masonry Contractor Relationship Specialty Start Date End Date Mellisa Hernandez CNP PCP - General Family Medicine 11/23/24 documented as of this encounter
--- OUTSIDE RECORDS SUMMARY | 2025-02-02 20:49 | XMS_ITS | Clinical Summary ---
Author Organization [employer] Address [address] [place] [address] 7t [place] [address] Care Team Providers Care Wool Grader Name Role Phone Mellisa Hernandez OUTPATIENT COORDINATOR Primary Care Provider [phone] [phone] Allergies No known active allergies Medications * This document contains information received from the source organization and may not represent a complete record from that organization. insulin syringe-needle U-100 31G X 5/16 0.5 [...] Take 25 mg by mouth at bedtime. Active FREESTYLE LITE test strip USE TO TEST BLOOD SUGAR FOUR TIMES DAILY Active Insulin Lispro 100 UNIT/ML solution MAX DAILY DOSE 85 UNITS VIA INSULIN PUMP Active FreeStyle lancets USE TO TEST BLOOD SUGAR FOUR TIMES DAILY Active Multiple Vitamin (multivitamin) tabletIndications :Hyperlipidemia, unspecified hyperlipidemia type,Type 1 diabetes mellitus with other specified complication (HCC) Take 1 tablet by mouth Once per day. 30 tablet 11 2025 Active loratadine (Claritin) 10 MG tablet TAKE 1 TABLET BY MOUTH EVERY DAY 90 tablet Active hydrOXYzine HCl (Atarax) 25 MG tabletIndications :Anxiety and depression TAKE 1 TABLET BY MOUTH IN THE MORNING, AT NOON AND AT BEDTIME NEEDED FOR ANXIETY 90 tablet Active ondansetron (Zofran) 4 MG tablet TAKE 2 TABLETS BY MOUTH EVERY 8 HOURS NEEDED FOR NAUSEA OR VOMITING FOR UP TO 7 DAYS 20 tablet Active simvastatin (Zocor) 10 MG tabletIndications :Hyperlipidemia, unspecified hyperlipidemia type,Type 1 diabetes mellitus with other specified complication (HCC) Take 1 tablet (10 mg) by mouth at bedtime. 30 tablet 11 2025 Active Insulin Aspart 100 UNIT/ML solution SEE ATTACHED 2024 Discontinued loratadine (Claritin) 10 MG tablet Take 1 tablet by mouth Once per day. 2024 Discontinued(R eorder (will not trigger notification to Pharmacy)) hydrOXYzine HCl (Atarax) 25 MG tabletIndications :Anxiety and depression Take 1 tablet (25 mg) by mouth if needed in the morning, at noon, and at bedtime for anxiety. 90 tablet 2024 Discontinued(R eorder (will not trigger notification to Pharmacy)) atorvastatin (Lipitor) 10 MG tabletIndications :Hyperlipidemia, unspecified hyperlipidemia type Take 1 tablet (10 mg) by mouth Once per day. 30 tablet 11 2024 Discontinued(S christelle effects) amoxicillin-clavu lanate (Augmentin) 875-125 MG tabletIndications :Infection of toenail Take 1 tablet by mouth 2 times daily for 10 days. 20 tablet 2024 hydrOXYzine HCl (Atarax) 25 MG tabletIndications :Anxiety [...] organization. Date Type Department Care Team Description 01/31/2025 Orders Only [facility] MED & PEDS [address] [place] [address] Mellisa Hernandez CNP Hyperlipidemia, unspecified hyperlipidemia type (Primary Dx); Type 1 diabetes mellitus with other specified complication ([facility]) 01/31/2025 Telephone [facility] [address] [place] [phone] Mellisa Hernandez CNP Medication Question 01/31/2025 Telephone [facility] [address] [place] [phone] Mellisa Hernandez CNP 01/31/2025 Refill [facility] [address] [place] [address] Mellisa Hernandez CNP Anxiety and depression 01/31/2025 Refill [facility] [address] [place] [address] Mellisa Hernandez CNP Anxiety and depression 01/05/2025 1:30 PM EDT Office Visit [facility] [address] [place] [address] Mellisa Hernandez CNP Hyperlipidemia, unspecified hyperlipidemia type (Primary Dx); Anxiety and depression; Transaminitis; Type 1 diabetes mellitus with other specified complication (HCC); Infection of toenail 01/05/2025 Travel 01/02/2025 Travel 12/30/2024 Telephone [facility] [address] [place] [address] Mellisa Hernandez CNP chart prep 12/24/2024 Refill [facility] [address] [place] [address] Mellisa Hernandez CNP Anxiety and depression 12/18/2024 Refill [facility] [address] [place] [address] Mellisa Hernandez CNP Anxiety and depression 12/08/2024 Travel 11/23/2024 2:00 PM EDT Office Visit [facility] [address] [place] [address] Mellisa Hernandez CNP Encounter to establish care (Primary Dx); Type 1 diabetes mellitus with other specified complication (CMS/HCC); Nausea; Constipation, unspecified constipation type; Mild intermittent asthma without complication; Toe infection; Neuropathy; Anxiety and depression; Elevated blood pressure reading without diagnosis of hypertension 11/23/2024 Travel 11/16/2024 Patient Outreach [facility] [address] [place] [address] Anastacio Prater MD Pre-visit Planning (Pre visit planning LVM ) 11/15/2024 Telephone [facility] [address] [place] [address] Catherine Sanchez MA chart prep from Last 3 Months Immunizations Immunization Administration [...] - 19+ 3-dose series) 2004 COVID-19 Vaccine (3 - 2024-2 6 season) 2024 09/18/2020, 08/28/2020 [...] diabetes mellitus with other specified complication (HCC) IRON AND TOTAL IRON BINDING CAPACITY Routine 01/05/2025 1:37 PM EDT Transaminitis ALBUMIN, RANDOM URINE W/CREATININE Routine 01/02/2025 9:15 [...] of2 resultswithin the time period is included. [facility] Glucose Blood, POC 95 60 - 200 mg/dL QC Media Lot # Comment:[id number] Lot# Expiration Date Comment:04/23/2025 Blood Capillary blood specimen / Unknown 01/05/2025 2:01 PM EDT [facility] POINT OF CARE TEST ENTER/ EDIT ORDERABLES Final Result * Iron And Total Iron Binding Capacity (01/05/2025 1:37 PM EDT) Pathologist [facility] Iron 83 45 - 160 mcg/dL [facility] Total Iron Binding Capacity 263 228 - 428 mcg/dL [facility] Percent Iron Saturation 32 15 - 50 % [facility] Unsaturated Iron Binding 180 ug/dL [facility] Blood Venous blood specimen / Unknown 01/05/2025 1:37 PM EDT 01/05/2025 5:50 PM EDT [facility] LAB BLOOD ORDERABLES Silvia l Result Performing Organization Address [facility] Co de Phone Number [facility] [address] [place] [address] [phone] * Albumin, Random Urine W/Creatinine (01/02/2025 9:15 AM EDT) Pathologist [facility] Creatinine, Urine 23.24 mg/dL [facility] Microalbumin Urine <5.0 mg/L [facility] Microalbum Creatinine Ratio Ur TNP <30 ug/mg cr [facility] Comment:Unable to calculate albumin/creatinine ratio due to lowmicroalbumin or creatinine result. Urine (Urine, Random) 01/02/2025 9:15 AM EDT 01/02/2025 2:23 PM EDT [facility] LAB URINE ORDERABLES Silvia l Result Performing Organization Address City/[facility]/ZIP Co de Phone Number [facility] [address] [place] [phone] * TSH W/Reflex to FT4 (01/02/2025 9:09 AM EDT) TSH reflex Free T4 3.05 0.32 - 4.0 uIU/mL [facility] Blood Venous blood specimen / Unknown 01/02/2025 9:09 AM EDT 01/02/2025 2:46 PM EDT [facility] LAB BLOOD ORDERABLES Silvia l Result [facility] [address] [place] [phone] * (ABNORMAL) CBC auto differential (01/02/2025 9:09 AM EDT) Pathologist [facility] White Blood Count 9.9 4.8 - 10.8 X10*3/uL [facility] Red Blood Count 5.24 4.60 - 5.80 X10*6/uL [facility] Hemoglobin 15.6 14.0 - 18.0 g/dl [facility] Hematocrit 44.2 42.0 - 52.0 % [facility] Mean Corpuscular Volume 84.4 80.0 - 98.0 fL [facility] Mean Corpuscular Hemoglobin 29.8 27.0 - 33.0 pg [facility] Mean Corpuscular HGB Conc 35.3 31.0 - 36.0 g/dl [facility] Red Cell Distribution Width 12.4 11.0 - 16.0 % [facility] Platelet Count 310 160 - 400 X10*3/uL [facility] Mean Platelet Volume 10.3 9.4 - 12.4 fL [facility] Neutrophils Percent Auto 71.1 45 - 73 % [facility] Imm Gran Pct Auto 0.6(H) 0.0 - 0.4 % [facility] Lymphocytes Percent Auto 17.4(L) 20 - 40 % [facility] Monocytes Percent Auto 6.4 2 - 11 % [facility] Eosinophils Percent Auto 3.7 0 - 4 % [facility] Basophils Percent Auto 0.8 0 - 2 % [facility] NRBC Pct Auto 0.0 0.0 - 0.2 /100WBC [facility] Neutrophils Absolute Auto 7.1 2.0 - 8.3 x10*3/uL [facility] Imm Gran Abs Auto 0.06(H) 0.00 - 0.03 X10*3/uL [facility] Lymphocytes Absolute Auto 1.7 1.2 - 4.9 X10*3/uL [facility] Monocytes Absolute Auto 0.6 0.1 - 1.2 X10*3/uL [facility] Eosinophils Absolute Auto 0.4 0.0 - 0.4 X10*3/uL [facility] Basophils Absolute Auto 0.1 0.0 - 0.2 X10*3/uL [facility] NRBC Abs Auto 0.000 0.0 - 0.012 X10*3/uL [facility] Blood Venous blood specimen / Unknown 01/02/2025 9:09 AM EDT 01/02/2025 2:35 PM EDT Result [facility] LAB BLOOD ORDERABLES Silvia l Result Performing Organization Address [facility] de Phone Number [facility] [address] [place] [phone] * Hepatitis C Antibody with Reflex to HCV, RNA, Quantitative, Real-Time PCR (01/02/2025 9:09 AM EDT) Hepatitis C Antibody Nonreactive Nonreactive [facility] Comment:Antibodies to HCV no t detected; does not exclude early acuteHCV infection. Blood Venous blood specimen / Unknown 01/02/2025 9:09 AM EDT 01/02/2025 2:35 PM EDT [facility] LAB BLOOD ORDERABLES Silvia l Result Performing Organization Address City/[facility] Co de Phone Number [facility] [address] [place] [phone] * HIV-1/2 Antigen and Antibodies, Fourth Generation, with Reflexes (01/02/2025 9:09 AM EDT) HIV AB/AG Nonreactive Nonreactive [facility] Comment:HIV-1 p24 Ag and/or HIV-1/HIV-2 Ab not detected.A test result that is nonreactive does not exclude thepossibility of exposure to or infection with HIV-1 and/orHIV-2. Nonreactive results in this assay for individualswith prior exposure to HIV-1 and/or HIV-2 may be due toantigen and antibody levels that are below the limit ofdetection of this assay.The uniRow HIV Ag/Ab Combo assay result andsupplemental assay results should be interpreted inconjunction with the patient's clinical presentation,history and other laboratory results. If the results areinconsistent with clinical evidence, additional testing issuggested to confirm the result. Blood Venous blood specimen / Unknown 01/02/2025 9:09 AM EDT 01/02/2025 2:35 PM EDT [facility] LAB BLOOD ORDERABLES Silvia l Result [facility] [address] [place] [phone] * (ABNORMAL) Hemoglobin A1c (01/02/2025 9:09 AM EDT) Hemoglobin A1c 7.3(H) <6.0 % [facility] Comment:Hemoglobin A1C Refer ence Range Adults: 4.8 - 6.0 % Non diabetic: < 6.0 % Goal: < 7.0 %Additional Action Suggested: > 8.0 %Note: Hemoglobin A1c results are invalid for patients with abnormal amounts of HbF. Blood transfusions may impact the HbA1c concentration in the patient sample. Estimated Average Glucose 163 mg/dL [facility] Comment:eAG = Estimated ave rage glucose which is %A1C expressed asaverage glucose, using the formula of the G8V-PehimedCfkvhvh Glucose study (ADAG), Diabetes Care, Vol.31,#8,2007 Blood Venous blood specimen / Unknown 01/02/2025 9:09 AM EDT 01/02/2025 2:35 PM EDT [facility] LAB BLOOD ORDERABLES Silvia l Result Performing Organization Address [facility] Co de Phone Number [facility] [address] [place] [phone] * (ABNORMAL) Lipid Panel, Standard (01/02/2025 9:09 AM EDT) Triglycerides 110 <150 mg/dL [facility] Comment:Desirable Triglyceri de: less than 150 mg/dLBorderline High Triglyceride 150-199 mg/dLHigh Triglyceride: 200-499 mg/dLVery High Triglyceride: greater than or equal to 5OO mg/dL Cholesterol 211(H) <200 mg/dL [facility] Comment:Desirable Cholestero l: less than 200 mg/dLBorderline High Cholesterol: 200-239 mg/dLHigh Cholesterol: greater than 239 mg/dL LDL Cholesterol Calculated 148(H) <100 mg/dL [facility] Comment:Desirable LDL: less than 100 mg/dLNear Optimal/Above Optimal LDL: 110- 129 mg/dLBorderline High LDL: 130-159 mg/dLHigh LDL: 160-189 mg/dLVery High LDL: greater than or equal to 190 mg/dL HDL Cholesterol 41 >40 mg/dL [facility] Comment:Desirable HDL: great er than 40 mg/dL Note: This HDL assay may give artificially low results in patients with liver disease. Blood Venous blood specimen / Unknown 01/02/2025 9:09 AM EDT 01/02/2025 2:46 PM EDT [facility] LAB BLOOD ORDERABLES Silvia l Result Performing Organization Address [facility]/ZIP Co de Phone Number [facility] [address] [place] [phone] * (ABNORMAL) Comprehensive Metabolic Panel (01/02/2025 9:09 AM EDT) Pathologist [facility] Sodium 135 135 - 145 mmol/L [facility] Potassium 4.4 3.3 - 5.1 mmol/L [facility] Chloride 97 96 - 108 mmol/L [facility] Carbon Dioxide 31(H) 22 - 29 mmol/L [facility] Anion Gap 11(L) 12 - 20 [facility] Urea Nitrogen (BUN) 14 9 - 16 mg/dL [facility] Creatinine, Serum 0.78 0.5 - 1.4 mg/dL [facility] Estimated Glomerular Filt Rate >60 [facility] Comment:Chronic Kidney Disea se: Estimated GFR < 60 mL/min/1.25p0Byqulh Kidney Disease: Estimated GFR < 15 mL/min/1.73m2 Glucose 281(H) 60 - 115 mg/dL [facility] Calcium 9.5 8.4 - 10.2 mg/dL [facility] Bilirubin, Total 0.8 0.0 - 1.0 mg/dL [facility] Aspartate Amino Transferase 27 5 - 37 U/L [facility] Alanine Aminotransferase 27 0 - 40 U/L [facility] Total Protein 7.0 6.5 - 8.0 g/dL [facility] Albumin Level 4.5 3.5 - 5.0 g/dL [facility] Alkaline Phosphatase 121(H) 39 - 117 U/L [facility] Blood Venous blood specimen / Unknown 01/02/2025 9:09 AM EDT 01/02/2025 2:46 PM EDT Andrezhayley Hernandez [facility] LAB BLOOD ORDERABLES Silvia l Result [facility] [address] [place] [phone] * (ABNORMAL) POCT A1c (11/23/2024 3:01 PM EDT) Pathologist [facility] Hemoglobin A1C 7.5(A) 4.0 - 5.7 % QC Media Lot # Comment:[id number] Lot# Expiration Date Comment:06/20/2026 Blood 11/23/2024 3:01 PM EDT Mellisa Hernandez CNP POINT OF CARE TEST ENTER/ EDIT ORDERABLES Final Result from Last 3 Months Insurance [facility] C3 Care Teams Wool Grader Relationship Specialty Start Date End Date Mellisa Hernandez CNP PCP - General Family Medicine 11/23/24
--- OUTSIDE RECORDS SUMMARY | 2025-02-02 20:49 | XMS_ITS | Clinical Summary ---
Author Organization [address] [place] [address] Address [address] [place] [address] Phone Care Team Providers Care Medical Records Supervisor Name Role Phone Unavailable Primary Care Provider Unavailabl e Social History Tobacco Use Types Packs/Day Years Used Date Smoking Tobacco: Never Assessed Sex and Gender Information Value Date Recorded Sex Assigned at Not on file Legal Sex Male 11:32 AM EDT Gender Identity Not on file Sexual Orientation Not on file Plan of Treatment Upcoming Encounters Date Type Department Care Team ([facility] Contact Info) Description 03/02/2025 2:45 PM EST Office Visit Orthopedic Surgery [place] [address] [phone] Christophe Nicole, DPM [address] [phone] Health Maintenance Due Date Last [...] Depression Screening 03/16/2024 COVID-19 Vaccine ( - 2024-2 6 season) 2024 Influenza Vaccine (#1) 2024 Cholesterol [...]
--- OUTSIDE RECORDS SUMMARY | 2025-02-02 20:49 | XMS_ITS | Encounter Summary ---
Author Organization [employer] Address [address] [facility] [address] [place] [address] Care Team Providers Care Linux Network Systems Administrator Name Role Phone Mellisa Hernandez CNP Primary Care Provider [phone] Encounter Details Date Type Department Care Team ([facility] st Contact Info) Description 01/31/2025 Orders Only [facility]S [address] [place], [place] [phone] David AndrezLUIGI miles [address] [place], [place] [phone] Hyperlipidemia, unspecified hyperlipidemia type (Primary Dx); Type 1 diabetes mellitus with other specified complication (HCC) Social History Tobacco Use Types Packs/Day Years [...] as of this encounter Visit Diagnoses Diagnosis Hyperlipidemia, unspecified hyperlipidemia type- Primary Type 1 diabetes mellitus with other specified complication (HCC) documented in this encounter Additional Health Concerns Assessment Noted Time PHQ-9 Depression Total Score: 22 025 3:11 PM EDT documented as of this encounter Care Teams [employer] Systems Administrator Relationship Specialty Start Date End Date Mellisa Hernandez CNP PCP - General Family Medicine 11/23/24 documented as of this encounter
== END 2025-02-02 15:53 | disposition home or self-care (01) ==
LOC: HO.RESP 15:52
DX: J45.901 Unspecified asthma with (acute) exacerbation (principal)
CPT/HCPCS: 94060; 94640; 94727; 94729

== ENCOUNTER → 2025-02-02 15:54 | Outpatient (BNV) | payer MEDICAID, SELFPAY | PROVIDERS: Visit Provider Internal Medicine Pulmonary Disease | DX: J45.909 Unspecified asthma, uncomplicated (principal) | CPT/HCPCS: 94060; 94727; 94729 ==

== ENCOUNTER 2025-03-14 08:43 | Outpatient (REF) | payer MEDICAID, SELFPAY ==
--- NOTE | ~2025-03-14 | US_ITS ---
CLINICAL HISTORY: transaminitis US abdomen complete Comparison: None provided Findings: The visualized pancreas is normal. The aorta and inferior vena cava are normal caliber. The appearance of the liver suggests fatty infiltration. There is no intrahepatic bile duct dilatation. The common duct is 4.3 mm in diameter. The gallbladder is normal. There is no sonographic Davila sign. The main portal vein is antegrade. The right kidney is 12.0 cm in length. The left kidney is 11.5 cm in length. The spleen is normal. No ascites. IMPRESSION: 1. Hepatic steatosis. This document has been electronically signed by: Mg Sunshine MD on 03/15/2025 10:10:15
--- OUTSIDE RECORDS SUMMARY | 2025-03-14 10:33 | XMS_ITS | Clinical Summary ---
Author Organization [facility] Address [address] [place] [address] Phone Care Team Providers Care Correspondence Renew Clerk Name Role Phone Unavailable Primary Care Provider Unavailabl e Encounters Date Type Department Care Team Description 03/02/2025 2:45 PM EST Office Visit Orthopedic Surgery [facility] [address] [place] [phone] Christophe Nicole, DPM Ingrowing nail (Primary Dx); Diabetic mononeuropathy simplex (CMS/HCC V24, CMS/HCC V28) from Last 3 Months Social History Tobacco Use Types Packs/Day Years Used Date Smoking Tobacco: Never Assessed Sex and Gender Information Value Date Recorded Sex Assigned at Not on file Legal Sex Male 11:32 AM EDT Gender Identity Not on file Sexual Orientation Not on file Last Filed Vital Signs Vital Sign Reading Time Taken Comments Blood Pressure - - Pulse - - Temperature - - Respiratory Rate - - Oxygen Saturation - - Inhaled Oxygen Concentration - - Weight 83.9 kg (185 lb) 03/02/2025 2:36 PM EST Height 177.8 cm (5' 10 ) 03/02/2025 2:36 PM EST Body Mass Index 26.54 03/02/2025 2:36 PM EST Plan of Treatment Health Maintenance Due Date Last Done Comments Diabetes: Annual Foot Exam 05/31/1995 Diabetes: Annual Retina Eye Exam 05/31/1995 DTaP,Tdap,and Td Vaccines (1 - Tdap) 2004 Hepatitis B Vaccines (1 of 3 - 19+ 3-dose series) 2004 HPV Vaccines (1 - 3-dose SCD M series) 2012 Depression Screening 03/16/2024 COVID-19 Vaccine (3 - 2025-2 6 season) 2024 09/18/2020, 08/28/2020 Influenza Vaccine (#1) 2024 Social Influencers of Health Screening 11/29/2024 Diabetes: Blood Sugar Contro l Test (HGBA1C) 07/03/2025 01/02/2025 Diabetes: Annual Urine Albumin-Creatinine Ratio (uACR) 01/02/2026 01/02/2025 Diabetes: Annual GFR (Glomerular Filtration Rate) 01/02/2026 01/02/2025 Cholesterol Screening (Lipid Panel) 01/02/2030 01/02/2025 RSV Immunization Adult Patients (1 - 1-dose 75+ series) 2060 Pneumococcal Vaccine: Pediatrics (0 to 5 Years) and At-Risk Patients (6 to 49 Years) Completed 03/10/2024 HIV Screening Completed 01/02/2025 Hepatitis [...] to complete this topic RSV Immunization Patients Under 20 months Aged Out No longer eligible b ased on patient's age to complete this topic Varicella Vaccines Aged Out No longer eligible based on patient's age to complete this topic Insurance MEDICA[place] - [place]
--- OUTSIDE RECORDS SUMMARY | 2025-03-14 10:33 | XMS_ITS | Encounter Summary ---
Author Organization [employer] Address [address] [place] [address] Care Team Providers Care Instrument/Control Technician Name Role Phone David Andrezginger MEYERS Primary Care Provider [phone] [phone] Encounter Details Date Type Department Care Team (Late st Contact Info) Description 01/31/2025 Telephone [facility] [address] [place] [address] Mellisa Hernandez CNP [address] [place], [place] [phone] Social History Tobacco Use Types Packs/Day Years [...] documented as of this encounter Care Teams Instrument/Control Technician Relationship Specialty Start Date End Date Mellisa Hernandez CNP PCP - General Family Medicine 11/23/24 documented as of this encounter
--- OUTSIDE RECORDS SUMMARY | 2025-03-14 10:33 | XMS_ITS | Clinical Summary ---
Author Organization [employer] Address [address] [place] [address] [address] [place] [address] Care Team Providers Care Core Winder Machine Operator Name Role Phone Mellisa Hernandez [facility] Primary Care Provider [phone] [phone] Allergies No known active allergies Medications * [...] mouth Once per day. 30 tablet 11 025 2025 Active loratadine (Claritin) 10 MG tablet TAKE 1 TABLET BY MOUTH EVERY DAY 90 tablet Active ondansetron (Zofran) 4 MG tablet TAKE 2 TABLETS BY MOUTH EVERY 8 HOURS NEEDED FOR NAUSEA OR VOMITING FOR UP TO 7 DAYS 20 tablet Active simvastatin (Zocor) 10 MG tabletIndications :Hyperlipidemia, unspecified hyperlipidemia type,Type 1 diabetes mellitus with other specified complication (HCC) Take 1 tablet (10 mg) by mouth at bedtime. 30 tablet 11 025 2025 Active hydrOXYzine HCl (Atarax) 25 MG tabletIndications :Anxiety and depression TAKE 1 TABLET BY MOUTH IN AM, AT NOON, AND AT BEDTIME( THREE TIMES DAILY) NEEDED FOR ANXIETY 90 tablet Active hydrOXYzine HCl (Atarax) 25 MG tabletIndications :Anxiety and depression TAKE 1 TABLET BY MOUTH IN THE MORNING, AT NOON AND AT BEDTIME NEEDED FOR ANXIETY 90 tablet 025 2024 Discontinued Active Problems Problem Noted Date Diagnosed Date [...] organization. Date Type Department Care Team Description 02/27/[address] [address] Mellisa Hernandez CNP Anxiety and depression 01/31/2025 Orders Only [facility] [address] [place] [address] Mellisa Hernandez CNP Hyperlipidemia, unspecified hyperlipidemia type (Primary Dx); Type 1 diabetes mellitus with other specified complication (HCC) 01/31/2025 Telephone [facility] [address] [place] [phone] Mellisa Hernandez CNP Medication Question 01/31/2025 Telephone [facility] [address] [place] [address] Mellisa Hernandez CNP 01/31/2025 Refill [facility] [address] [place] [phone] Mellisa Hernandez CNP Anxiety and depression 01/31/2025 Refill [facility] [address] [place] [address] Mellisa Hernandez CNP Anxiety and depression 01/05/2025 1:30 PM EDT Office Visit [facility] [address] [place] [address] Mellisa Hernandez CNP Hyperlipidemia, unspecified hyperlipidemia type (Primary Dx); Anxiety and depression; Transaminitis; Type 1 diabetes mellitus with other specified complication (HCC); Infection of toenail 01/05/2025 Travel 01/02/2025 Travel 12/30/2024 Telephone [facility] [address] [place] [address] Mellisa Hernandez CNP chart prep 12/24/2024 Refill [facility] [address] [place] [address] Mellisa Hernandez CNP Anxiety and depression 12/18/2024 Refill [facility] [address] [place] [address] Mellisa Hernandez CNP Anxiety and depression from Last 3 Months Immunizations Immunization Administration [...] - 19+ 3-dose series) 2004 COVID-19 Vaccine (2024-2 6 season) 2024 09/18/2020, 08/28/2020 Influenza Vaccine [...] Priority Date/Time Associated Diagnosis Comments POCT GLUCOSE (CPT-[id number]) Routine 01/05/2025 2:01 PM EDT Type 1 [...] 9:09 AM EDT Encounter to establish care from Last 3 Months Results * POCT glucose manually resulted (01/05/2025 2:01 PM EDT) Glucose Blood, POC 95 60 - 200 mg/dL QC Media Lot # Comment:[id number] Lot# Expiration Date Comment:04/23/2025 Blood Capillary blood specimen / Unknown 01/05/2025 2:01 PM EDT [facility] POINT OF CARE TEST ENTER/ EDIT ORDERABLES Final Result * Iron And Total Iron Binding Capacity (01/05/2025 1:37 PM EDT) Iron 83 45 - 160 mcg/dL [facility] Total Iron Binding Capacity 263 228 - 428 mcg/dL [facility] Percent Iron Saturation 32 15 - 50 % [facility] Unsaturated Iron Binding 180 ug/dL [facility] Blood Venous blood specimen / Unknown 01/05/2025 1:37 PM EDT 01/05/2025 5:50 PM EDT [facility] LAB BLOOD ORDERABLES Silvia l Result Performing Organization Address City/[facility]/ZIP Co de Phone Number [facility] [address] [place] [phone] * Albumin, Random Urine W/Creatinine (01/02/2025 9:15 AM EDT) Creatinine, Urine 23.24 mg/dL [facility] Microalbumin Urine <5.0 mg/L [facility] Microalbum Creatinine Ratio Ur TNP <30 ug/mg cr [facility] Comment:Unable to calculate albumin/creatinine ratio due to lowmicroalbumin or creatinine result. Urine (Urine, Random) 01/02/2025 9:15 AM EDT 01/02/2025 2:23 PM EDT [facility] LAB URINE ORDERABLES Silvia l Result Performing Organization Address City/[facility]/ZIP Co de Phone Number [facility] [address] [place] [phone] * TSH W/Reflex to FT4 (01/02/2025 9:09 AM EDT) Pathologist [facility] TSH reflex Free T4 3.05 0.32 - 4.0 uIU/mL [facility] Blood Venous blood specimen / Unknown 01/02/2025 9:09 AM EDT 01/02/2025 2:46 PM EDT [facility] BLOOD ORDERABLES Silvia l Result [facility] [address] [place] [phone] * (ABNORMAL) CBC auto differential (01/02/2025 9:09 AM EDT) [facility] White Blood Count 9.9 4.8 - 10.8 X10*3/uL [facility] Red Blood Count 5.24 4.60 - 5.80 X10*6/uL [facility] Hemoglobin 15.6 14.0 - 18.0 g/dl [facility] Hematocrit 44.2 42.0 - 52.0 % [facility] Mean Corpuscular Volume 84.4 80.0 - 98.0 fL [facility] Mean Corpuscular Hemoglobin 29.8 27.0 - 33.0 pg [facility] Mean Corpuscular HGB Conc 35.3 31.0 - 36.0 g/dl [facility] Red Cell Distribution Width 12.4 11.0 - 16.0 % [facility] Platelet Count 310 160 - 400 X10*3/uL [facility] Mean Platelet Volume 10.3 9.4 - 12.4 fL [facility] Neutrophils Percent Auto 71.1 45 - 73 % [facility] Imm Gran Pct Auto 0.6(H) 0.0 - 0.4 % [facility] Lymphocytes Percent Auto 17.4(L) 20 - 40 % [facility] Monocytes Percent Auto 6.4 2 - 11 % [facility] Eosinophils Percent Auto 3.7 0 - 4 % [facility] Basophils Percent Auto 0.8 0 - 2 % [facility] NRBC Pct Auto 0.0 0.0 - 0.2 /100WBC [facility] Neutrophils Absolute Auto 7.1 2.0 - 8.3 x10*3/uL [facility] Imm Gran Abs Auto 0.06(H) 0.00 - 0.03 X10*3/uL [facility] Lymphocytes Absolute Auto 1.7 1.2 - 4.9 X10*3/uL [facility] Monocytes Absolute Auto 0.6 0.1 - 1.2 X10*3/uL [facility] Eosinophils Absolute Auto 0.4 0.0 - 0.4 X10*3/uL [facility] Basophils Absolute Auto 0.1 0.0 - 0.2 X10*3/uL [facility] NRBC Abs Auto 0.000 0.0 - 0.012 X10*3/uL [facility] Blood Venous blood specimen / Unknown 01/02/2025 9:09 AM EDT 01/02/2025 2:35 PM EDT [facility] LAB BLOOD ORDERABLES Silvia l Result Performing Organization Address [facility] Co de Phone Number [facility] [address] [place] [phone] * Hepatitis C Antibody with Reflex to HCV, RNA, Quantitative, Real-Time PCR (01/02/2025 9:09 AM EDT) Hepatitis C Antibody Nonreactive Nonreactive [facility] Comment:Antibodies to HCV no t detected; does not exclude early acuteHCV infection. Blood Venous blood specimen / Unknown 01/02/2025 9:09 AM EDT 01/02/2025 2:35 PM EDT [facility] LAB BLOOD ORDERABLES Silvia l Result Performing Organization Address [facility]/ZIP Co de Phone Number [facility] [address] [place] [phone] * HIV-1/2 Antigen and Antibodies, Fourth Generation, with Reflexes (01/02/2025 9:09 AM EDT) HIV AB/AG Nonreactive Nonreactive [facility] Comment:HIV-1 p24 Ag and/or HIV-1/HIV-2 Ab not detected.A test result that is nonreactive does not exclude thepossibility of exposure to or infection with HIV-1 and/orHIV-2. Nonreactive results in this assay for individualswith prior exposure to HIV-1 and/or HIV-2 may be due toantigen and antibody levels that are below the limit ofdetection of this assay.The [employer] HIV Ag/Ab Combo assay result andsupplemental assay results should be interpreted inconjunction with the patient's clinical presentation,history and other laboratory results. If the results areinconsistent with clinical evidence, additional testing issuggested to confirm the result. Blood Venous blood specimen / Unknown 01/02/2025 9:09 AM EDT 01/02/2025 2:35 PM EDT [facility] BLOOD ORDERABLES Silvia l Result [facility] [address] [place] [phone] * (ABNORMAL) Hemoglobin A1c (01/02/2025 9:09 AM EDT) Hemoglobin A1c 7.3(H) <6.0 % [facility] Comment:Hemoglobin A1C Refer ence Range Adults: 4.8 - 6.0 % Non diabetic: < 6.0 % Goal: < 7.0 %Additional Action Suggested: > 8.0 %Note: Hemoglobin A1c results are invalid for patients with abnormal amounts of HbF. Blood transfusions may impact the HbA1c concentration in the patient sample. Estimated Average Glucose 163 mg/dL [facility] Comment:eAG = Estimated ave rage glucose which is %A1C expressed asaverage glucose, using the formula of the [id number] Glucose study (ADAG), Diabetes Care, Vol.31,#8,Oct. 2007 Blood Venous blood specimen / Unknown 01/02/2025 9:09 AM EDT 01/02/2025 2:35 PM EDT [facility] BLOOD ORDERABLES Silvia l Result Performing Organization Address [facility] Co de Phone Number [facility] [address] [place] [phone] * (ABNORMAL) Lipid Panel, Standard (01/02/2025 9:09 AM EDT) Triglycerides 110 <150 mg/dL [facility] Comment:Desirable Triglyceri de: less than 150 mg/dLBorderline High Triglyceride 150-199 mg/dLHigh Triglyceride: 200-499 mg/dLVery High Triglyceride: greater than or equal to 5OO mg/dL Cholesterol 211(H) <200 mg/dL [facility] Comment:Desirable Cholestero l: less than 200 mg/dLBorderline High Cholesterol: 200-239 mg/dLHigh Cholesterol: greater than 239 mg/dL LDL Cholesterol Calculated 148(H) <100 mg/dL [facility] Comment:Desirable LDL: less than 100 mg/dLNear Optimal/Above Optimal LDL: 110- 129 mg/dLBorderline High LDL: 130-159 mg/dLHigh LDL: 160-189 mg/dLVery High LDL: greater than or equal to 190 mg/dL HDL Cholesterol 41 >40 mg/dL [facility] Comment:Desirable HDL: great er than 40 mg/dL Note: This HDL assay may give artificially low results in patients with liver disease. Blood Venous blood specimen / Unknown 01/02/2025 9:09 AM EDT 01/02/2025 2:46 PM EDT [facility] BLOOD ORDERABLES Silvia l Result Performing Organization Address City/[facility]/ZIP Co de Phone Number [facility] [address] [place] [phone] * (ABNORMAL) Comprehensive Metabolic Panel (01/02/2025 9:09 AM EDT) Sodium 135 135 - 145 mmol/L [facility] Potassium 4.4 3.3 - 5.1 mmol/L [facility] Chloride 97 96 - 108 mmol/L [facility] Carbon Dioxide 31(H) 22 - 29 mmol/L [facility] Anion Gap 11(L) 12 - 20 [facility] Urea Nitrogen (BUN) 14 9 - 16 mg/dL [facility] Creatinine, Serum 0.78 0.5 - 1.4 mg/dL [facility] Estimated Glomerular Filt Rate >60 [facility] Comment:Chronic Kidney Disea se: Estimated GFR < 60 mL/min/[id number] Kidney Disease: Estimated GFR < 15 mL/min/1.73m2 Glucose 281(H) 60 - 115 mg/dL [facility] Calcium 9.5 8.4 - 10.2 mg/dL [facility] Bilirubin, Total 0.8 0.0 - 1.0 mg/dL [facility] Aspartate Amino Transferase 27 5 - 37 U/L [facility] Alanine Aminotransferase 27 0 - 40 U/L [facility] Total Protein 7.0 6.5 - 8.0 g/dL [facility] Albumin Level 4.5 3.5 - 5.0 g/dL [facility] Alkaline Phosphatase 121(H) 39 - 117 U/L [facility] Blood Venous blood specimen / Unknown 01/02/2025 9:09 AM EDT 01/02/2025 2:46 PM EDT [facility] INSTRUMENT REPAIR SPECIALIST LAB BLOOD ORDERABLES Silvia l Result [facility] [address] [place] [phone] from Last 3 Months Insurance [facility] C3 Care Teams Core Winder Machine Operator Relationship Specialty Start Date End Date Mellisa Hernandez CNP PCP - General Family Medicine 11/23/24
--- OUTSIDE RECORDS SUMMARY | 2025-03-14 10:33 | XMS_ITS | Encounter Summary ---
Author Organization [employer] Address [address] [facility] 7[address] [place] [address] Care Team Providers Care Insurance Agency Sales Manager Name Role Phone Mellisa Hernandez CNP Primary Care Provider [phone] [phone] Reason for Visit * Reason Comments Med Refill Encounter Details Date Type Department Care Team ([facility] st Contact Info) Description 12/24/2024 Refill [facility] [address] [place] [address] Mellisa Hernandez CNP [address] [place] [address] Anxiety and depression Social History Tobacco Use [...] documented as of this encounter Care Teams Insurance Agency Sales Manager Relationship Specialty Start Date End Date Mellisa Hernandez CNP PCP - General Family Medicine 11/23/24 documented as of this encounter
== END 2025-03-14 08:44 ==
LOC: HO.HMGCX 08:43
DX: R74.01 Elevation of levels of liver transaminase levels (principal)
CPT/HCPCS: 76700

== ENCOUNTER → 2025-03-14 09:03 | Outpatient (BNV) | payer MEDICAID, SELFPAY | PROVIDERS: Visit Provider Specialist | DX: K76.0 Fatty (change of) liver, not elsewhere classified (principal) | CPT/HCPCS: 76700 ==